=== PATIENT | female | born 1990 | race Caucasian/White ===

== ENCOUNTER 2018-01-21 10:05 | Emergency (ER) | payer BC, OTHER ==
[~2018-01-21] VITALS: Ht 162.6 cm; Wt 77.1 kg
[2018-01-21] MEDS ORDERED: KETOROLAC TROMETHAMINE 30 MG INJ ONE (10:25)
[2018-01-21] MEDS ORDERED: KETOROLAC TROMETHAMINE 30 MG INJ IM ONE (10:30)
--- NOTE | 2018-01-21 10:45 | NUR ---
MSE COMPLETED, LEFT ARM/SHOULDER SLING PLACED, ACI/RX X1 GIVEN. PT AMBULATED W/O DIFF/TOOK ALL BELONGINGS.
[2018-01-21 10:47] VITALS: BP 115/71
== END 2018-01-21 10:47 | disposition home or self-care (01) ==
LOC: ER 10:05
DX: M25.512 Pain in left shoulder (principal); M25.522 Pain in left elbow
CPT/HCPCS: 73030; 73080; A4663; J1885

== ENCOUNTER 2018-09-13 23:48 | Emergency (ER) | payer OTHER ==
[~2018-09-13] VITALS: Ht 165.1 cm; Wt 95.3 kg
--- NOTE | 2018-09-14 00:18 | NUR ---
Dr. Palomares at bedside for MSE.
[2018-09-14] MEDS ORDERED: KETOROLAC TROMETHAMINE 30 MG INJ ONE (00:27)
[2018-09-14] MEDS ORDERED: PHENAZOPYRIDINE HCL 100 MG TABLET ONE (00:27)
[2018-09-14] MEDS: KETOROLAC TROMETHAMINE 30 MG INJ IM ONE (00:28)
[2018-09-14] MEDS: PHENAZOPYRIDINE HCL 100 MG TABLET PO ONE (00:29)
--- NOTE | 2018-09-14 00:40 | NUR ---
Pt provided urine sample, sent to lab.
[2018-09-14 01:05] LABS: *BLOOD, URINE NEGATIVE (NEGATIVE); *CLARITY,URINE SLIGHTLY CLOUDY (CLEAR); *COLOR,URINE YELLOW (YELLOW); *KETONES,URINE TRACE (NEGATIVE); *UROBILINOGEN,URINE 0.2 E.U./dl (NORMAL); LEUKOCYTE ESTERASE ,URINE NEGATIVE (NEGATIVE); NITRITE, URINE NEGATIVE (NEGATIVE); UGLUCOSE NEGATIVE (NEGATIVE)
[2018-09-14 01:15] LABS: *BILIRUBIN,URIN 1+ (NEGATIVE)
[2018-09-14 01:16] LABS: *URINE HCG, QUAL NEGATIVE (NEGATIVE)
[2018-09-14 01:18] LABS: BACTERIA,URINE FEW /HPF (NONE SEEN); RBC,URINE 0-3 /HPF (0-3); SQUAMOUS EPITHELIAL CELL,UR MANY /HPF (NONE SEEN); WBC,URINE 0-3 /HPF (0-3)
[2018-09-14 01:19] LABS: MUCUS,URINE MANY /LPF (0-FEW)
--- NOTE | 2018-09-14 01:28 | NUR ---
Patient discharged to home in stable conditon. Written and verbal after care instructions given. Patient verbalizes understanding of instructions. Pt ambulated out of ER with steady gait, no acute signs of distress, VSS, all belongings taken.
[2018-09-14 01:29] VITALS: BP 110/72
== END 2018-09-14 01:29 | disposition home or self-care (01) ==
LOC: ER 23:55
DX: M54.5 Low back pain (principal); R30.0 Dysuria
CPT/HCPCS: 81001; 84703; 96372; 99283; J1885; A4663

== ENCOUNTER 2019-05-05 20:51 | Emergency (ER) | payer OTHER ==
[~2019-05-05] VITALS: Ht 162.6 cm; Wt 95.3 kg
[2019-05-05] MEDS ORDERED: IBUPROFEN 600 MG TABLET PO ONE (22:15)
[2019-05-05] MEDS ORDERED: IBUPROFEN 600 MG TABLET ONE (22:18)
--- NOTE | 2019-05-05 22:40 | NUR ---
Patient discharged to home in stable conditon with friend taking patient home. Written and verbal after care instructions given. Patient verbalizes understanding of instructions. Walked out of ER with no distress noted.
[2019-05-05 22:42] VITALS: BP 130/80
== END 2019-05-05 22:40 | disposition home or self-care (01) ==
LOC: ER 20:54
DX: M77.9 Enthesopathy, unspecified (principal)
CPT/HCPCS: 73080; A4663